=== PATIENT | female | born 1995 | race African-American/Black ===

== ENCOUNTER 2020-12-01 16:25 | Emergency (ER) | payer OTHER ==
[~2020-12-01] VITALS: Ht 165.1 cm; Wt 57.6 kg
[2020-12-01 17:09] VITALS: BP 107/69
== END 2020-12-01 18:04 | disposition home or self-care (01) ==
LOC: ER 16:25
DX: Z20.822 Contact with and (suspected) exposure to COVID-19 (principal); F12.90 Cannabis use, unspecified, uncomplicated